=== PATIENT | female | born 1970 | race Caucasian/White ===

== ENCOUNTER 2016-06-19 12:25 | Emergency (ER) | payer BC, OTHER ==
[2016-06-19 12:55] VITALS: BP 137/88
--- NOTE | 2016-06-19 13:03 | EDM.PDOC ---
ED HPI Allergic Reaction - General Chief Complaint: Allergic Reaction Stated Complaint: ALLERGIC REACTION TO MEDS Time Seen by Provider: 06/19/16 12:50 Source: Reports: Patient History Limitations: Reports: No limitations - History of Present Illness INITIAL COMMENTS - FREE TEXT/NARRATIVE: History of present illness: [This patient is having some trouble with her eyes it was felt to be some sort of allergic reaction she was given a shot of Kenalog but since then she has developed erythematous rash on her face and neck pubic and she thinks she is reacting to the Kenalog. She seen pie cutter in the distant past and has had some skin disorders and problems off and on during her lifetime. She's had no fevers or chills she denies any shortness of breath or airway problem] Review of systems: As per history of present illness and below otherwise all systems reviewed and negative. Past medical history: As per history of present illness and as reviewed below otherwise noncontributory. Surgical history: As per history of present illness and as reviewed below otherwise noncontributory. Social history: No reported history of drug or alcohol abuse. Family history: As per history of present illness and as reviewed below otherwise noncontributory. Physical exam: HEENT: Atraumatic, normocephalic, mucous membranes moist, throat clear, neck supple, nontender, trachea midline. Lungs: Clear to auscultation, breath sounds equal bilaterally, Heart: S1S2, regular Abdomen: Soft, nondistended, nontender. Pelvis: Stable nontender. Genitourinary: Deferred. Rectal: Deferred. Neuro: Awake, alert, oriented. Cranial nerves II through XII unremarkable. Cerebellum unremarkable. Motor and sensory unremarkable throughout. Exam nonfocal. Skin: She does have a fairly confluent erythematous rash on her face and neck that blanches slightly warm to touch there is some edema about her I leads as well her oral airway is clear neck is supple chest is clear Diagnostics: [] Therapeutics: [] Impression: [Allergic reaction possibly to Kenalog] Plan: [Instructed her at this point that she may need to see a pie cutter as if she is allergic to steroids and Kenalog then perhaps limits as far as how we can help her with her skin problems. Recommending that she continue with the Benadryl and also take [id number] Zantac and then followup with Dr. Kim consideration of referral to dermatology] Definitive disposition and diagnosis as appropriate pending reevaluation and review of above. - Related Data Allergies/ADRs: Allergies Allergy/AdvReac Type Severity Reaction Status Date / Time No Known Allergies Allergy Verified 01/13/14 10:32 Home Meds: Home Meds Lisinopril [Prinivil] 10 mg PO DAILY 07/04/13 [History] Venlafaxine HCl [Venlafaxine ER] 37.5 mg PO DAILY 07/04/13 [History] Past Medical History Cardiovascular History: Reports: Hypertension - Past Surgical History Musculoskeletal Surgical History: Reports: Knee replacement Social & Family History - Tobacco Use Smoking Status *Q: Current Every Day Smoker Years of Tobacco use: 15 Packs/Tins Daily: 0.5 - Alcohol Use Days Per Week of Alcohol Use: 0 Number of Drinks Per Day: 1 Total Drinks Per Week: 0 - Recreational Drug Use Recreational Drug Use: No ED ROS ALLERGIC REACTION - Review of Systems Review Of Systems: ROS reveals no pertinent complaints other than HPI. ED EXAM GENERAL NO PERIP PULSE - Physical Exam Exam: See Below Course - Vital Signs Last Recorded V/S: Last Vital Signs Temp 36.4 C 06/19/16 12:47 Pulse 73 06/19/16 12:47 Resp 14 06/19/16 12:47 BP 137/88 06/19/16 12:47 Pulse Ox 98 06/19/16 12:47 Departure - Departure Time of Disposition: 13:01 Disposition: Home, Self-Care 01 Condition: good Clinical Impression: Allergic reaction caused by a drug Qualifiers: Encounter type: initial encounter Qualified Code(s): T78.40XA - Allergy, unspecified, initial encounter Forms: ED Department Discharge Additional Instructions: As per our discussion I would recommend that you take [id number] Zantac in addition to taking Benadryl. He could also try taking some Vaseline in putting on on parts of her skin very dry especially if they're dry and flaky I. would recommend that you followup with Dr. Raygoza and see about referral to a pie cutter.
== END 2016-06-19 13:15 | disposition home or self-care (01) ==
LOC: JP.ED 12:25
DX: R21 Rash and other nonspecific skin eruption (principal); T78.40XA Allergy, unspecified, initial encounter; I10 Essential (primary) hypertension; F17.210 Nicotine dependence, cigarettes, uncomplicated; Z79.899 Other long term (current) drug therapy; Z96.659 Presence of unspecified artificial knee joint
CPT/HCPCS: 99283

== ENCOUNTER 2023-01-23 06:51 | Day surgery (SDC) | payer BC ==
[2023-01-23 07:05] LABS: HEMATOCRIT 49.5 % (34.3-46.0); HEMOGLOBIN 15.8 g/dL (11.2-15.5); MEAN CORPUSCULAR HEMOGLOBIN 27.4 pg (31.6-35.5); MEAN CORPUSCULAR HGB CONC 31.9 g/dL (31.6-35.5); MEAN CORPUSCULAR VOLUME 85.8 fL (81.4-99.0); RED BLOOD CELL COUNT 5.77 M/uL (3.77-5.24); WHITE BLOOD CELL COUNT,WBC 13.1 K/uL (3.2-11.0)
[2023-01-23] MEDS ORDERED: Bupivacaine 0.5% 30 ML SDV ONE ×3 (07:21→10:38)
[2023-01-23] MEDS ORDERED: Midazolam 1 MG/ML 2 ML SDV ONE (07:25)
[2023-01-23] MEDS ORDERED: Propofol 200 MG/20 ML SDV ONE ×3 (07:25→10:07)
[2023-01-23] MEDS ORDERED: fentaNYL 100 MCG/2 ML SDV ONE ×3 (07:25→10:29)
[2023-01-23 07:28] LABS: A/G RATIO 1.1 (1.2-2.2); ALANINE AMINOTRANSFERASE,ALT 25 U/L (12-78); ALBUMIN 3.8 g/dL (3.4-5.0); ALKALINE PHOSPHATASE 74 U/L (46-116); ASPARTATE AMNIOTRANSFERASE,AST 14 U/L (15-37); BILIRUBIN TOTAL 0.4 mg/dL (0.2-1.0); BLOOD UREA NITROGEN,BUN 17 mg/dL (7-18); CALCIUM 9.2 mg/dL (8.5-10.1); CARBON DIOXIDE,CO2 28 mmol/L (21-32); CHLORIDE,CL 102 mmol/L (100-108); CREATININE 0.6 mg/dL (0.6-1.0); EST CRCL DRUG DOSING (CG) 96.45 mL/min; ESTIMATED GFR 107 mL/min (>60); GLUCOSE RANDOM 134 mg/dL (74-106); POTASSIUM,K 3.9 mmol/L (3.6-5.2); PROTEIN TOTAL,TP 7.2 g/dL (6.4-8.2); SODIUM,NA 138 mmol/L (140-148)
[2023-01-23 07:30] LABS: ANION GAP 11.9 mmol/L (5.0-14.0)
[2023-01-23] MEDS ORDERED: ceFAZolin 1 GM in Sodium Chloride 0.9% 50 ML IV ONE (07:30)
[2023-01-23] MEDS ORDERED: ceFAZolin 1 GM in Premix Bag 1 BAG IV ONE (07:30)
[2023-01-23] MEDS ORDERED: Lactated Ringers 1,000 ML IV SCH (07:30)
[2023-01-23] MEDS ORDERED: Nozin Nasal Sanitizer NASBOTH ONE (07:30)
[2023-01-23] MEDS ORDERED: Albuterol/Ipratropium 3.0-0.5 MG/3 ML Neb Soln NEB ONE (12:29)
[2023-01-23] MEDS ORDERED: Ondansetron 4 MG/2 ML SDV IVPUSH ONE (14:18)
[2023-01-23 14:34] VITALS: BP 126/73; PULSE 72
== END 2023-01-23 15:59 | disposition home or self-care (01) ==
LOC: JP.SDS 06:51
PROVIDERS: ATTEND Specialist
DX: M75.121 Complete rotator cuff tear or rupture of right shoulder, not specified as traumatic (principal); D17.21 Benign lipomatous neoplasm of skin and subcutaneous tissue of right arm; M94.211 Chondromalacia, right shoulder; M65.811 Other synovitis and tenosynovitis, right shoulder; M75.41 Impingement syndrome of right shoulder; I10 Essential (primary) hypertension; E78.5 Hyperlipidemia, unspecified; F33.9 Major depressive disorder, recurrent, unspecified; F41.9 Anxiety disorder, unspecified; E11.9 Type 2 diabetes mellitus without complications; F17.200 Nicotine dependence, unspecified, uncomplicated; Z79.899 Other long term (current) drug therapy; Z79.84 Long term (current) use of oral hypoglycemic drugs; Z88.8 Allergy status to other drugs, medicaments and biological substances
CPT/HCPCS: 23075; 29826; 29827; 36415; 80053; 85027; 94640; A9270-GY; C1713; J0690; J2250; J2405; J2704; J3010; J3490; J7120; J7620